=== PATIENT | female | born 1965 | race Caucasian/White ===

== ENCOUNTER 2017-05-27 21:44 | Inpatient (IN) | payer BC ==
[~2017-05-27] VITALS: Ht 165.1 cm; Wt 117.9 kg
[~2017-05-27 21:44] MED LIST: 24 HOUR ALLER15.8 ML BOTH NARES; AMBIEN10 MG PO; AZELASTINE HCL6 ML BOTH EYES; CIPRO500 MG PO; DESYREL100 MG PO; FEOSOL325 MG PO; FLAGYL500 MG PO; IMITREX50 MG PO; LEXAPRO10 MG PO; LISINOPRIL-HCT1 EAC3 PO; METFORMIN HCL500 MG PO; NEOMYCIN SULFA500 MG PO; PANTOPRAZOLE SO40 MG PO; POTASSIUM-9999 MG PO; XANAX1 MG PO; XYZAL5 MG PO
[2017-05-28 07:33] LABS: POINT-OF-CARE METER ID UU14174212
[2017-05-28 07:46] VITALS: BP 128/76
[2017-05-28 08:23] LABS: METH RESISTANT S AUREUS PCR NEGATIVE (NEGATIVE); PROBE CHECK PASS; SPECIMEN PROCESSING CONTROL PASS
[2017-05-28 10:46] LABS: POINT-OF-CARE METER ID UU13113655; POINT-OF-CARE USER ID ENVKLS06
[2017-05-28 15:01] LABS: POINT-OF-CARE METER ID UU13113675
[2017-05-28 16:19] VITALS: BP 131/62
[2017-05-28 16:50] LABS: POINT-OF-CARE METER ID UU13113725
[2017-05-28 20:13] VITALS: BP 136/70
[2017-05-28 21:26] LABS: POINT-OF-CARE METER ID UU13113725
[2017-05-28 23:58] VITALS: BP 138/69
[2017-05-29 04:16] VITALS: BP 139/67
[2017-05-29 06:10] LABS: EOSINOPHIL (%) 0 % (0-5); HEMATOCRIT 30.5 % (36.0-46.0); IMMATURE GRANULOCYTE (%) 0.3 % (0.0-0.7); LYMPHOCYTE COUNT 0.4 K/uL (1.0-2.8); MCH 27.8 PG (29.0-34.0); MCHC 31.1 G/DL (30.0-36.0); MCV 89.2 FL (83-99); MEAN PLAT.VOLUME 8.6 uM^3 (9.5-12.4); MONOCYTE (%) 4.4 % (3-12); MONOCYTE COUNT 0.4 K/uL (0-0.8); NEUTROPHIL (%) 91.1 % (45-76); PLATELET COUNT 235 K/uL (156-360); RBC DIS.WIDTH-CV 12.7 % (11.8-14.6); RBC DIS.WIDTH-SD 41.5 % (39-53); WHITE BLOOD COUNT 9.9 K/uL (4.1-10.2)
[2017-05-29 06:24] LABS: RED BLOOD COUNT 3.42 M/uL (3.80-5.20)
[2017-05-29 06:38] LABS: ALKALINE PHOSPHATASE 64 IU/L (3-129); ANION GAP 8 MEQ/L (2-14); CHLORIDE 104 MEQ/L (99-109); GFR ESTIMATE (CALCULATED) > 59 mL/min/; GLUCOSE 146 mg/dL (70-99); MAGNESIUM 1.7 mg/dl (1.3-2.7); POTASSIUM 4.1 MEQ/L (3.7-5.4); SAMPLE HEMOLYSIS CHECK 0; SAMPLE ICTERIC CHECK 0; SAMPLE LIPEMIA CHECK 0; SODIUM 141 MEQ/L (136-147); UREA NITROGEN (BUN) 8 mg/dL (9-23)
[2017-05-29 06:41] LABS: TOTAL BILIRUBIN 0.3 MG/DL (0.0-1.0)
[2017-05-29 06:58] LABS: POINT-OF-CARE METER ID UU13113774
[2017-05-29 09:18] VITALS: BP 131/61
[2017-05-29 09:22] VITALS: BP 131/61
[2017-05-29 10:51] LABS: POINT-OF-CARE METER ID UU13113774
[2017-05-29 11:05] VITALS: BP 164/75
[2017-05-29 16:03] LABS: POINT-OF-CARE METER ID UU13113725
[2017-05-29 16:15] VITALS: BP 128/67
[2017-05-29 20:12] VITALS: BP 160/64
[2017-05-29 21:24] LABS: POINT-OF-CARE METER ID UU13113774
[2017-05-30] VITALS (7 sets, daily range): BP systolic 120–165; BP diastolic 57–83
[2017-05-30 06:06] LABS: HEMATOCRIT 29.1 % (36.0-46.0); MCH 28.1 PG (29.0-34.0); MCHC 30.9 G/DL (30.0-36.0); MCV 90.9 FL (83-99); MEAN PLAT.VOLUME 8.8 uM^3 (9.5-12.4); PLATELET COUNT 194 K/uL (156-360); RBC DIS.WIDTH-SD 42.3 % (39-53); WHITE BLOOD COUNT 8.3 K/uL (4.1-10.2)
[2017-05-30 06:15] LABS: POINT-OF-CARE METER ID UU13113774
[2017-05-30 06:29] LABS: ANION GAP 7 MEQ/L (2-14); CHLORIDE 101 MEQ/L (99-109); GFR ESTIMATE (CALCULATED) > 59 mL/min/; GLUCOSE 138 mg/dL (70-99); SAMPLE HEMOLYSIS CHECK 0; SAMPLE ICTERIC CHECK 0; SAMPLE LIPEMIA CHECK 0; SODIUM 140 MEQ/L (136-147); UREA NITROGEN (BUN) 7 mg/dL (9-23)
[2017-05-30 11:29] LABS: POINT-OF-CARE METER ID UU13113725
[2017-05-30 16:15] LABS: POINT-OF-CARE METER ID UU13113774
[2017-05-30 21:27] LABS: POINT-OF-CARE METER ID UU13113725
[2017-05-31 05:11] VITALS: BP 144/70
[2017-05-31 07:47] VITALS: BP 129/58
[2017-05-31 09:12] LABS: EOSINOPHIL (%) 0.5 % (0-5); IMMATURE GRANULOCYTE (%) 0.6 % (0.0-0.7); INSTRUMENT ABS NEUTROPHIL CT 5.2 K/uL; LYMPHOCYTE COUNT 0.8 K/uL (1.0-2.8); MCH 27.7 PG (29.0-34.0); MCHC 31.1 G/DL (30.0-36.0); MCV 89.2 FL (83-99); MEAN PLAT.VOLUME 8.7 uM^3 (9.5-12.4); MONOCYTE (%) 6.6 % (3-12); MONOCYTE COUNT 0.4 K/uL (0-0.8); NEUTROPHIL (%) 79.1 % (45-76); NEUTROPHIL COUNT 5.2 K/uL (1.8-6.4); PLATELET COUNT 195 K/uL (156-360); RBC DIS.WIDTH-CV 12.7 % (11.8-14.6); RBC DIS.WIDTH-SD 41.3 % (39-53); RED BLOOD COUNT 3.14 M/uL (3.80-5.20); WHITE BLOOD COUNT 6.6 K/uL (4.1-10.2)
[2017-05-31 09:33] LABS: ANION GAP 6 MEQ/L (2-14); CHLORIDE 102 MEQ/L (99-109); GFR ESTIMATE (CALCULATED) > 59 mL/min/; GLUCOSE 127 mg/dL (70-99); POTASSIUM 3.8 MEQ/L (3.7-5.4); SAMPLE HEMOLYSIS CHECK 0; SAMPLE ICTERIC CHECK 0; SAMPLE LIPEMIA CHECK 0; SODIUM 140 MEQ/L (136-147); UREA NITROGEN (BUN) 8 mg/dL (9-23)
[2017-05-31 12:17] LABS: POINT-OF-CARE METER ID UU13113774
[2017-05-31 15:31] VITALS: BP 137/65
[2017-05-31 16:28] LABS: POINT-OF-CARE METER ID UU13113725
[2017-05-31 20:30] VITALS: BP 128/62
[2017-05-31 21:19] LABS: POINT-OF-CARE METER ID UU13113725
[2017-05-31 22:03] VITALS: BP 128/62
[2017-06-01 00:10] VITALS: BP 151/70
[2017-06-01 05:50] LABS: EOSINOPHIL (%) 1.1 % (0-5); EOSINOPHIL COUNT 0.1 K/uL (0-0.3); IMMATURE GRANULOCYTE (%) 0.6 % (0.0-0.7); MCH 27.7 PG (29.0-34.0); MCHC 31.4 G/DL (30.0-36.0); MCV 88.1 FL (83-99); MEAN PLAT.VOLUME 8.8 uM^3 (9.5-12.4); MONOCYTE (%) 6.2 % (3-12); MONOCYTE COUNT 0.3 K/uL (0-0.8); NEUTROPHIL (%) 73.7 % (45-76); PLATELET COUNT 187 K/uL (156-360); RBC DIS.WIDTH-CV 12.7 % (11.8-14.6); RBC DIS.WIDTH-SD 40.7 % (39-53); RED BLOOD COUNT 3.18 M/uL (3.80-5.20); WHITE BLOOD COUNT 5.4 K/uL (4.1-10.2)
[2017-06-01 06:20] LABS: ANION GAP 7 MEQ/L (2-14); CHLORIDE 104 MEQ/L (99-109); GFR ESTIMATE (CALCULATED) > 59 mL/min/; GLUCOSE 125 mg/dL (70-99); POTASSIUM 3.6 MEQ/L (3.7-5.4); SAMPLE HEMOLYSIS CHECK 0; SAMPLE ICTERIC CHECK 0; SAMPLE LIPEMIA CHECK 0; SODIUM 141 MEQ/L (136-147); UREA NITROGEN (BUN) 8 mg/dL (9-23)
[2017-06-01 06:39] LABS: POINT-OF-CARE METER ID UU13113725
[2017-06-01 07:43] VITALS: BP 185/80
[2017-06-01] MEDS ORDERED: PERCOCET 5/31 TABLET PO (09:02)
[2017-06-01 11:49] LABS: POINT-OF-CARE METER ID UU13113725
[2017-06-01 13:10] VITALS: BP 145/70
== END 2017-06-01 15:37 | disposition home or self-care (01) | DRG 330 ==
LOC: ENRESERV 21:44 → 2SOUTH 05-28 06:18 → 5EAST 05-28 06:18 → 2SOUTH 05-28 08:44 → 5EAST 05-28 16:02 → 2SOUTH 05-28 16:17 → ENPENDDIS 06-01 → 5EAST 06-01 15:37
PROVIDERS: Physician Assistant; Surgery; Thoracic Surgery (Cardiothoracic Vascular Surgery)
DX: C18.7 Malignant neoplasm of sigmoid colon (principal); K56.690 Other partial intestinal obstruction; K63.3 Ulcer of intestine; D50.9 Iron deficiency anemia, unspecified; E11.9 Type 2 diabetes mellitus without complications; I10 Essential (primary) hypertension; G47.33 Obstructive sleep apnea (adult) (pediatric); K21.9 Gastro-esophageal reflux disease without esophagitis; K64.9 Unspecified hemorrhoids; R53.83 Other fatigue; G43.909 Migraine, unspecified, not intractable, without status migrainosus; M19.90 Unspecified osteoarthritis, unspecified site; E66.9 Obesity, unspecified; Z68.41 Body mass index [BMI] 40.0-44.9, adult; Z90.710 Acquired absence of both cervix and uterus
CPT/HCPCS: 80048; 80053; 82948; 83735; 84100; 85025; 85027; 87641; 88302; 88309; 94799; J0131; J0330; J1170; J1650; J1815; J2250; J2405; J2550; J2710; J2765; J3010; J7120; Q0175; S0030